=== PATIENT | female | born 2000 | race African-American/Black ===

== ENCOUNTER 2022-05-25 12:35 | Observation (INO) | payer OTHER ==
[2022-05-25 13:46] VITALS: BMI 31.9
[2022-05-25] MEDS ORDERED: Promethazine HCl 25 MG/ML VIAL IM PRN (17:43)
[2022-05-25] MEDS ORDERED: Ondansetron PF 4 MG/2 ML Vial IVP PRN (17:43)
[2022-05-25] MEDS ORDERED: hydrALAZINE 20 MG/ML VIAL SLOW IVP PRN (17:43)
[2022-05-25] MEDS ORDERED: Acetaminophen 500 MG TAB PO PRN (17:43)
[2022-05-25 19:25] LABS: SARS-CoV-2 NAA Rapid Test Not Detected (NotDetected)
[2022-05-25] MEDS: Progesterone,Micronized 100 MG CAP FS SCH (21:10)
[2022-05-26] MEDS: Progesterone,Micronized 100 MG CAP FS SCH (08:47)
== END 2022-05-26 20:44 | disposition short-term general hospital (02) ==
LOC: CSHLD/OP 12:35 → INTOOBSV 17:43 → CSHLD 17:43 → UNDOADMIN 05-26 09:46 → UNDODISIN 05-26 20:44
PROVIDERS: ADMIT Family Medicine; ATTEND Family Medicine
DX: O26.872 Cervical shortening, second trimester (principal); Z3A.20 20 weeks gestation of pregnancy; Z79.82 Long term (current) use of aspirin; Z79.899 Other long term (current) drug therapy; Z20.822 Contact with and (suspected) exposure to COVID-19
CPT/HCPCS: 76805; 99285; U0002